=== PATIENT | female | born 1955 | race Caucasian/White ===

== ENCOUNTER 2019-02-25 18:56 | Inpatient (IN) | payer MEDICARE, BC ==
[2019-02-25 19:25] LABS: ADD MAN DIFF? NO
[2019-02-25 19:29] LABS: BASOPHILS % 0.4 % (0.0-2.0); EOSINOPHILS # 0.2 10^3/ul (0.0-0.5); EOSINOPHILS % 3.1 % (0.0-7.0); HEMATOCRIT 41.7 % (37.0-47.0); HEMOGLOBIN 13.2 g/dl (12.0-16.0); LYMPHOCYTES # 2.1 10^3/ul (0.8-2.9); LYMPHOCYTES % 30.4 % (15.0-51.0); MEAN CORPUSCULAR HEMOGLOBIN 31.4 pg (29.0-33.0); MEAN CORPUSCULAR HGB CONC 31.7 g/dl (32.0-37.0); MEAN PLATELET VOLUME 9.1 fl (7.4-10.4); MONOCYTE # 0.6 10^3/ul (0.3-0.9); MONOCYTES % 8.3 % (0.0-11.0); NEUTROPHIL # 3.9 10^3/ul (1.6-7.5); NEUTROPHILS % 57.5 % (39.0-77.0); PLATELET COUNT 190 10^3/UL (140-415); RED BLOOD COUNT 4.21 10^6/ul (4.20-5.40); RED CELL DISTRIBUTION WIDTH 13.3 % (11.5-14.5)
[2019-02-25 19:29] LABS: WHITE BLOOD COUNT 6.7 10^3/ul (4.8-10.8)
[2019-02-25 19:47] LABS: ANION GAP 10 (5-13); BLOOD UREA NITROGEN 62 mg/dl (7-20); CALCIUM 9.8 mg/dl (8.4-10.2); CARBON DIOXIDE 29 mmol/L (21-31); CHLORIDE 103 mmol/L (97-110); CREATININE 1.67 mg/dl (0.44-1.00); Estimated GFR 31 mL/min (>60); GLUCOSE 116 mg/dl (70-220); SODIUM 142 mmol/L (135-144)
[2019-02-25 19:51] LABS: POTASSIUM 5.3 mmol/L (3.5-5.1)
[2019-02-25 19:58] LABS: TROPONIN-I < 0.012 ng/ml (0.000-0.120)
[2019-02-25] MEDS ORDERED: morphine 2 MG INJ (22:57)
[2019-02-25] MEDS ORDERED: NACL 0.9% 3 ML SYG IV (23:00)
[2019-02-25] MEDS: morphine 2 MG INJ IV (23:00)
[2019-02-25] MEDS ORDERED: ONDANSETRON 4 MG INJ IV (23:00)
[2019-02-25] MEDS ORDERED: ACETAMINOPHEN 325 MG TAB PO ×2 (23:00)
[2019-02-25] MEDS ORDERED: MIDAZOLAM 1 MG/ML 2 ML INJ IV (23:04)
[2019-02-25] MEDS ORDERED: FENTAnyl 50 MCG/ML VIAL IV (23:04)
[2019-02-25] MEDS ORDERED: FENTAnyl (DRIP) 1000 mcg/100mL 100 ML IV (23:30)
[2019-02-25] MEDS ORDERED: MIDAZOLAM (DRIP) 50 mg/50 mL 50 ML IV (23:30)
[2019-02-26] MEDS: SOD CHLORIDE 0.9% 1,000 ML IV (00:55)
[2019-02-26] MEDS: FUROSEMIDE 40 MG INJ IV ×2 (01:47→09:32)
[2019-02-26 02:42] LABS: CREATINE KINASE 23 IU/L (23-200)
[2019-02-26 02:52] LABS: CK INDEX 1.9; CK-MB 0.43 ng/ml (0.0-2.4)
[2019-02-26 03:37] LABS: B-TYPE NATRIURETIC PEPTIDE 1530 PG/ML (0-125)
[2019-02-26 05:00] LABS: ADD MAN DIFF? NO
[2019-02-26 05:04] LABS: WHITE BLOOD COUNT 6.3 10^3/ul (4.8-10.8)
[2019-02-26 05:04] LABS: BASOPHILS % 0.3 % (0.0-2.0); EOSINOPHILS # 0.2 10^3/ul (0.0-0.5); EOSINOPHILS % 3.3 % (0.0-7.0); HEMATOCRIT 36.5 % (37.0-47.0); HEMOGLOBIN 11.7 g/dl (12.0-16.0); LYMPHOCYTES # 1.9 10^3/ul (0.8-2.9); LYMPHOCYTES % 30.3 % (15.0-51.0); MEAN CORPUSCULAR HEMOGLOBIN 31.8 pg (29.0-33.0); MEAN CORPUSCULAR HGB CONC 32.1 g/dl (32.0-37.0); MEAN CORPUSCULAR VOLUME 99.2 fl (82.0-101.0); MEAN PLATELET VOLUME 9.1 fl (7.4-10.4); MONOCYTE # 0.8 10^3/ul (0.3-0.9); MONOCYTES % 12.7 % (0.0-11.0); NEUTROPHIL # 3.4 10^3/ul (1.6-7.5); NEUTROPHILS % 53.1 % (39.0-77.0); PLATELET COUNT 178 10^3/UL (140-415); RED BLOOD COUNT 3.68 10^6/ul (4.20-5.40); RED CELL DISTRIBUTION WIDTH 13.4 % (11.5-14.5)
[2019-02-26 05:22] LABS: TROPONIN-I < 0.012 ng/ml (0.000-0.120)
[2019-02-26 05:41] LABS: ALANINE AMINOTRANSFERASE 11 IU/L (13-69); ALBUMIN 3.4 g/dl (3.3-4.9); ALBUMIN/GLOBULIN RATIO 0.97; ALKALINE PHOSPHATASE 97 IU/L (42-121); ANION GAP 8 (5-13); ASPARTATE AMINO TRANSFERASE < 8 IU/L (15-46); BILIRUBIN,INDIRECT 0.3 mg/dl (0-1.1); BILIRUBIN,TOTAL 0.3 mg/dl (0.2-1.3); BLOOD UREA NITROGEN 60 mg/dl (7-20); CALCIUM 9.2 mg/dl (8.4-10.2); CARBON DIOXIDE 29 mmol/L (21-31); CHLORIDE 106 mmol/L (97-110); CREATININE 1.57 mg/dl (0.44-1.00); Estimated GFR 33 mL/min (>60); GLUCOSE 100 mg/dl (70-220); MAGNESIUM 2.2 mg/dl (1.7-2.5); SODIUM 143 mmol/L (135-144); TOTAL PROTEIN 6.9 g/dl (6.1-8.1)
[2019-02-26 07:48] LABS: HEMOGLOBIN A1C 5.4 % (0-5.9)
[2019-02-26 08:53] LABS: CREATINE KINASE < 20 IU/L (23-200)
[2019-02-26] MEDS ORDERED: ALBUTEROL 0.083% (NEB) 2.5 MG/3 ML AMP HHN (09:00)
[2019-02-26 09:06] LABS: CK-MB 0.39 ng/ml (0.0-2.4); TROPONIN-I < 0.012 ng/ml (0.000-0.120)
[2019-02-26 12:09] LABS: AADO2 Arterial 30.4 mmHg (7.0-24.0); Allen Test ACCEPTAB; Arterial Base Excess 3.5 mmol/L (-3.0-3); Arterial Blood Gas Oxygen Sat 91.2 mmHG (95.0-98.0); Arterial COHb 0.4 % (0.0-3.0); Arterial Fraction of Oxyhgb 90.7 % (93.0-99.0); Arterial MetHb 0.1 % (0.0-1.5); Arterial pCO2 47.7 mmhg (35-45); MODE ROOM AIR; Site Right Radial
[2019-02-26 15:35] LABS: ADD UMIC YES; UR ASCORBIC ACID 20 mg/dL (NEGATIVE); UR BACTERIA FEW /HPF (NONE SEEN); UR BILIRUBIN (Dip) NEGATIVE (NEGATIVE); UR BLOOD (Dip) NEGATIVE (NEGATIVE); UR CLARITY SLIGHTLY CLOUDY (CLEAR); UR COLOR STRAW (YELLOW); UR GLUCOSE (Dip) NEGATIVE (NEGATIVE); UR KETONES (Dip) NEGATIVE (NEGATIVE); UR LEUKOCYTE ESTERASE (Dip) 2+ Leu/ul (NEGATIVE); UR NITRITE (Dip) NEGATIVE (NEGATIVE); UR RBC 6 /HPF (0-5); UR SQUAMOUS EPITHELIAL CELL FEW /HPF (FEW); UR TOTAL PROTEIN (Dip) 1+ mg/dl (NEGATIVE); UR UROBILINOGEN (Dip) NEGATIVE (NEGATIVE); UR WBC 78 /HPF (0-5)
[2019-02-26 15:43] LABS: CREATININE,URINE RANDOM 45.43 mg/dl (20-320)
[2019-02-26 15:43] LABS: SODIUM,URINE RANDOM 110 mmol/L (30-90)
[2019-02-26] MEDS: morphine 2 MG INJ IV ×2 (17:57→22:26)
[2019-02-26] MEDS: NITROGLYCERIN (SL) 0.4 MG TAB SL ×2 (20:03→20:14)
[2019-02-26] MEDS: ASPIRIN (EC) 81 MG TAB PO (21:00)
[2019-02-27] MEDS: morphine 2 MG INJ IV ×3 (03:17→20:39)
[2019-02-27 05:38] LABS: ADD MAN DIFF? NO
[2019-02-27 05:57] LABS: BASOPHILS % 0.3 % (0.0-2.0); EOSINOPHILS # 0.2 10^3/ul (0.0-0.5); EOSINOPHILS % 2.6 % (0.0-7.0); HEMATOCRIT 36.2 % (37.0-47.0); HEMOGLOBIN 11.5 g/dl (12.0-16.0); LYMPHOCYTES % 32.8 % (15.0-51.0); MEAN CORPUSCULAR HEMOGLOBIN 31.4 pg (29.0-33.0); MEAN CORPUSCULAR HGB CONC 31.8 g/dl (32.0-37.0); MEAN CORPUSCULAR VOLUME 98.9 fl (82.0-101.0); MEAN PLATELET VOLUME 9.2 fl (7.4-10.4); MONOCYTE # 0.6 10^3/ul (0.3-0.9); MONOCYTES % 10.5 % (0.0-11.0); NEUTROPHIL # 3.3 10^3/ul (1.6-7.5); NEUTROPHILS % 53.6 % (39.0-77.0); PLATELET COUNT 190 10^3/UL (140-415); RED BLOOD COUNT 3.66 10^6/ul (4.20-5.40); RED CELL DISTRIBUTION WIDTH 13.3 % (11.5-14.5)
[2019-02-27 05:57] LABS: WHITE BLOOD COUNT 6.1 10^3/ul (4.8-10.8)
[2019-02-27 06:21] LABS: PHOSPHORUS 5.3 mg/dl (2.5-4.9)
[2019-02-27 06:21] LABS: MAGNESIUM 2.1 mg/dl (1.7-2.5)
[2019-02-27 06:23] LABS: ALANINE AMINOTRANSFERASE 13 IU/L (13-69); ALBUMIN 3.5 g/dl (3.3-4.9); ALBUMIN/GLOBULIN RATIO 0.92; ALKALINE PHOSPHATASE 107 IU/L (42-121); ANION GAP 9 (5-13); ASPARTATE AMINO TRANSFERASE < 8 IU/L (15-46); BILIRUBIN,INDIRECT 0.3 mg/dl (0-1.1); BILIRUBIN,TOTAL 0.3 mg/dl (0.2-1.3); BLOOD UREA NITROGEN 61 mg/dl (7-20); CALCIUM 8.7 mg/dl (8.4-10.2); CARBON DIOXIDE 29 mmol/L (21-31); CHLORIDE 104 mmol/L (97-110); CHOL/HDL RATIO 5.2 RATIO; CHOLESTEROL 204 mg/dl (100-200); CREATININE 1.73 mg/dl (0.44-1.00); Estimated GFR 30 mL/min (>60); GLUCOSE 98 mg/dl (70-220); HDL CHOLESTEROL 39 mg/dl (35-98); LDL CHOLESTEROL,CALCULATED 97 mg/dl; POTASSIUM 4.7 mmol/L (3.5-5.1); SODIUM 142 mmol/L (135-144); TOTAL PROTEIN 7.3 g/dl (6.1-8.1); TRIGLYCERIDES 338 mg/dl (0-149)
[2019-02-27 06:25] LABS: B-TYPE NATRIURETIC PEPTIDE 850 PG/ML (0-125)
[2019-02-27] MEDS: ASPIRIN (EC) 81 MG TAB PO (08:04)
[2019-02-27] MEDS: FUROSEMIDE 40 MG INJ IV (08:05)
[2019-02-27] MEDS ORDERED: CEFEPIME 1GM/50 ML (PMX) 50 ML IVPB (11:00)
[2019-02-27] MEDS: HEPARIN 5,000 UNIT/1 ML VIAL SC ×2 (11:44→20:48)
[2019-02-27] MEDS: DOCUSATE SODIUM 100 MG CAP PO (17:03)
[2019-02-27] MEDS: ATORVASTATIN 20 MG TAB PO (20:39)
[2019-02-27] MEDS: BISACODYL (EC) 5 MG TAB PO (20:53)
[2019-02-27] MEDS ORDERED: ATORVASTATIN 20 MG TAB PO (21:00)
[2019-02-27] MEDS: HYDROCODONE/APAP (5/325) TAB PO (23:38)
[2019-02-28] MEDS: morphine 2 MG INJ IV ×5 (00:35→21:29)
[2019-02-28 07:12] LABS: ANION GAP 6 (5-13); BLOOD UREA NITROGEN 60 mg/dl (7-20); CALCIUM 9.8 mg/dl (8.4-10.2); CARBON DIOXIDE 32 mmol/L (21-31); CHLORIDE 103 mmol/L (97-110); Estimated GFR 32 mL/min (>60); GLUCOSE 96 mg/dl (70-220); MAGNESIUM 2.2 mg/dl (1.7-2.5); PHOSPHORUS 5.5 mg/dl (2.5-4.9); POTASSIUM 4.6 mmol/L (3.5-5.1); SODIUM 141 mmol/L (135-144)
[2019-02-28] MEDS: ASPIRIN (EC) 81 MG TAB PO (08:31)
[2019-02-28] MEDS: FUROSEMIDE 20 MG TAB PO (08:31)
[2019-02-28] MEDS: HEPARIN 5,000 UNIT/1 ML VIAL SC ×2 (08:33→21:35)
[2019-02-28] MEDS: SEVELAMER CARBONATE 800 MG TABLET PO ×2 (12:05→17:43)
[2019-02-28] MEDS: METOPROLOL 25 MG TAB PO ×2 (14:42→21:28)
[2019-02-28 16:47] LABS: CREATININE, RANDOM URINE 48 mg/dL (20-275); MICROALBUMIN 27.4 mg/dL; MICROALBUMIN/CREATININE RATIO 571 (<30)
[2019-02-28] MEDS: ATORVASTATIN 20 MG TAB PO (21:28)
[2019-03-01] MEDS: hydrALAzine 20 MG INJ IV (04:30)
[2019-03-01 06:38] LABS: ANION GAP 9 (5-13); BLOOD UREA NITROGEN 54 mg/dl (7-20); CALCIUM 10.1 mg/dl (8.4-10.2); CARBON DIOXIDE 28 mmol/L (21-31); CHLORIDE 102 mmol/L (97-110); CREATININE 1.47 mg/dl (0.44-1.00); Estimated GFR 36 mL/min (>60); GLUCOSE 104 mg/dl (70-220); MAGNESIUM 1.9 mg/dl (1.7-2.5); PHOSPHORUS 3.5 mg/dl (2.5-4.9); SODIUM 139 mmol/L (135-144)
[2019-03-01] MEDS: ONDANSETRON 4 MG INJ IV (06:42)
[2019-03-01] MEDS: SEVELAMER CARBONATE 800 MG TABLET PO ×3 (09:36→17:15)
[2019-03-01] MEDS: ASPIRIN (EC) 81 MG TAB PO (09:36)
[2019-03-01] MEDS: DOCUSATE SODIUM 100 MG CAP PO (09:36)
[2019-03-01] MEDS: HYDROCODONE/APAP (5/325) TAB PO ×2 (09:37→17:16)
[2019-03-01] MEDS: FUROSEMIDE 20 MG TAB PO (09:37)
[2019-03-01] MEDS: HEPARIN 5,000 UNIT/1 ML VIAL SC ×2 (09:48→21:15)
[2019-03-01] MEDS ORDERED: morphine 2 MG INJ (11:12)
[2019-03-01] MEDS: morphine 2 MG INJ IV (11:15)
[2019-03-01] MEDS: LEVOFLOXACIN 500 MG TAB PO (11:57)
[2019-03-01] MEDS: LACTOBACILLUS RHAMNOSUS CAP PO ×2 (11:57→21:12)
[2019-03-01] MEDS: BISACODYL (EC) 5 MG TAB PO (11:57)
[2019-03-01] MEDS: ATORVASTATIN 20 MG TAB PO (21:11)
[2019-03-02] MEDS: LEVOFLOXACIN 500 MG TAB PO (05:11)
[2019-03-02 06:00] LABS: ANION GAP 9 (5-13); BLOOD UREA NITROGEN 55 mg/dl (7-20); CALCIUM 9.4 mg/dl (8.4-10.2); CARBON DIOXIDE 27 mmol/L (21-31); CHLORIDE 102 mmol/L (97-110); CREATININE 1.77 mg/dl (0.44-1.00); Estimated GFR 29 mL/min (>60); GLUCOSE 107 mg/dl (70-220); MAGNESIUM 2.1 mg/dl (1.7-2.5); PHOSPHORUS 5.3 mg/dl (2.5-4.9); POTASSIUM 4.6 mmol/L (3.5-5.1); SODIUM 138 mmol/L (135-144)
[2019-03-02] MEDS: HYDROCODONE/APAP (5/325) TAB PO ×2 (09:04→16:54)
[2019-03-02] MEDS: BISACODYL (EC) 5 MG TAB PO (09:04)
[2019-03-02] MEDS: DOCUSATE SODIUM 100 MG CAP PO (09:04)
[2019-03-02] MEDS: ASPIRIN (EC) 81 MG TAB PO (09:04)
[2019-03-02] MEDS: ONDANSETRON 4 MG INJ IV (09:04)
[2019-03-02] MEDS: LACTOBACILLUS RHAMNOSUS CAP PO (09:04)
[2019-03-02] MEDS: SEVELAMER CARBONATE 800 MG TABLET PO ×3 (09:04→17:55)
[2019-03-02] MEDS: FUROSEMIDE 20 MG TAB PO (09:05)
[2019-03-02] MEDS: HEPARIN 5,000 UNIT/1 ML VIAL SC (09:35)
== END 2019-03-02 19:15 | DRG 291 ==
LOC: 6WM 22:54 → E/R 18:56
DX: I13.0 Hypertensive heart and chronic kidney disease with heart failure and stage 1 through stage 4 chronic kidney disease, or unspecified chronic kidney disease (principal); J18.9 Pneumonia, unspecified organism; I50.31 Acute diastolic (congestive) heart failure; N17.9 Acute kidney failure, unspecified; N39.0 Urinary tract infection, site not specified; I69.354 Hemiplegia and hemiparesis following cerebral infarction affecting left non-dominant side; R07.9 Chest pain, unspecified; N18.9 Chronic kidney disease, unspecified; I69.992 Facial weakness following unspecified cerebrovascular disease; E78.5 Hyperlipidemia, unspecified; J44.9 Chronic obstructive pulmonary disease, unspecified; E83.39 Other disorders of phosphorus metabolism; I34.0 Nonrheumatic mitral (valve) insufficiency; I35.1 Nonrheumatic aortic (valve) insufficiency; Z74.01 Bed confinement status
CPT/HCPCS: 36415; 36600; 71045; 76775; 80048; 80053; 80061; 81001; 81003; 82043; 82550; 82553; 82803; 83036; 83735; 83880; 84100; 84155; 84300; 84443; 84484; 85025; 87040-91; 93005; 93306; 97163; 97530; 99285-25; G0378